=== PATIENT | female | born 1950 | race Caucasian/White ===

== ENCOUNTER → 2017-04-24 | Outpatient (CLI) | payer MEDICARE, OTHER ==
[~2017-04-24] MED LIST: ASPI-983 PO; HYDR15SO8 PO; IRON PO; NF-ESOM40C PO; ONDN4T PO; OSPE60TA2 PO; PARO30TA74 PO
--- NOTE | 2017-04-27 09:58 | Diagnostic Imaging Report ---
EXAMINATION: Bilateral screening mammogram with a Computer Aided Detection (CAD) system. INDICATION: Screening. PERSONAL HISTORY: No current complaints stated on the questionnaire. COMPARISON: 04/22/2016. FINDINGS: The breasts are composed of heterogeneously dense parenchyma which may decrease mammographic sensitivity. Occasional benign-appearing calcifications are seen. Allowing for technique and positional differences, no suspicious change is seen. IMPRESSION: Dense breasts with no definite change. ACR BI-RADS Category 2: Benign findings. Result letter will be mailed to the patient. Note: At least 10% of breast cancer is not imaged by mammography. Dictated by: Dictated on workstation # [id number]
== END ==
LOC: RAD 10:07
PROVIDERS: ATTEND Internal Medicine
DX: Z12.31 Encounter for screening mammogram for malignant neoplasm of breast (principal)
CPT/HCPCS: 77067

== ENCOUNTER 2018-01-21 14:17 | Emergency (ER) | payer MEDICARE, OTHER ==
[~2018-01-21] VITALS: Ht 152.4 cm; Wt 52.2 kg
[2018-01-21] MEDS ORDERED: NS IV 1000 ML 1,000 ML IV SCH (14:27)
[2018-01-21] MEDS ORDERED: PROMETHAZINE INJ 25 MG/ML (PHENERGAN) AMP IVP ONE (14:30)
[2018-01-21] MEDS ORDERED: ONDANSETRON 4 MG/2 ML (SDV) Z0FRAN IVP ONE (14:30)
[2018-01-21 14:42] LABS: BASOPHILS # (AUTO) 0.1 10^3/uL (0.0-0.1); BASOPHILS % (AUTO) 1 % (0-10); EOSINOPHILS # (AUTO) 0.1 10^3/uL (0.0-0.3); EOSINOPHILS % (AUTO) 1 % (0-10); HEMATOCRIT 45 % (35-52); HEMOGLOBIN 15.2 G/DL (11.5-16.0); LYMPHOCYTES # (AUTO) 1.5 X 10^3 (1.0-4.0); LYMPHOCYTES % (AUTO) 23 % (12-44); MEAN CORPUSCULAR HEMOGLOBIN 29 PG (25-34); MEAN CORPUSCULAR HGB CONC 34 G/DL (32-36); MEAN CORPUSCULAR VOLUME 87 FL (80-99); MEAN PLATELET VOLUME 10.8 FL (7.4-10.4); MONOCYTES # (AUTO) 0.6 X 10^3 (0.0-1.0); MONOCYTES % (AUTO) 9 % (0-12); NEUTROPHILS # (AUTO) 4.3 X 10^3 (1.8-7.8); NEUTROPHILS % (AUTO) 66 % (42-75); PLATELET COUNT 217 10^3/uL (130-400); RED BLOOD COUNT 5.17 10^6/uL (4.35-5.85); RED CELL DISTRIBUTION WIDTH 13.2 % (10.0-14.5); WHITE BLOOD COUNT 6.5 10^3/uL (4.3-11.0)
--- NOTE | 2018-01-21 14:56 | Diagnostic Imaging Report ---
PROCEDURE: CT head without contrast. TECHNIQUE: Multiple contiguous axial images were obtained through the brain without the use of intravenous contrast. INDICATION: Headache, nausea and vomiting. COMPARISON: None. FINDINGS: No acute intracranial hemorrhage, mass effect or edema is seen. Guerra-white junction is preserved. Ventricles appear normal. There is no focal abnormality. The paranasal sinuses and mastoids are clear as visualized. IMPRESSION: No acute intracranial abnormalities demonstrated. Dictated by: Dictated on workstation # [id number]
[2018-01-21 14:58] LABS: ALANINE AMINOTRANSFERASE 15 U/L (0-55); ALBUMIN 4.4 GM/DL (3.2-4.5); ALKALINE PHOSPHATASE 75 U/L (40-136); BILIRUBIN,TOTAL 0.9 MG/DL (0.1-1.0); BUN/CREATININE RATIO 10; CALCIUM 9.6 MG/DL (8.5-10.1); CARBON DIOXIDE 28 MMOL/L (21-32); CHLORIDE 103 MMOL/L (98-107); CREATININE SERUM 0.72 MG/DL (0.60-1.30); GFR ESTIMATED > 60; GLUCOSE 145 MG/DL (70-105); MAGNESIUM 1.9 MG/DL (1.8-2.4); POTASSIUM 3.2 MMOL/L (3.6-5.0); SODIUM 139 MMOL/L (135-145); TOTAL PROTEIN 6.8 GM/DL (6.4-8.2)
[2018-01-21] MEDS ORDERED: fentaNYL INJECTION 100 MCG/2 ML AMP IVP ONE (15:00)
--- NOTE | 2018-01-21 15:01 | ED General ---
General Chief Complaint: Neurological Problems Stated Complaint: N/V HEADACHE Nursing Triage Note: ASSISTED PT OUT OF CAR AND INTO ER VIA WC. COMPLAINS OF DIZZINESS, HEADACHE, N/V. AND WEAKNESS STARTING AT 1230 TODAY. Nursing Sepsis Screen: No Definite Risk Source of Information: Patient, Family Exam Limitations: No Limitations History of Present Illness Date Seen by Provider: Jan 21, 2018 Time Seen by Provider: 14:20 Initial Comments This 67 from woman presents to the emergency room with complaints of dizziness, headache, nausea, and vomiting starting around 12:30 today. She has a history of infrequent headaches but states this is worse than what she remembers. The headache is generalized. She denies any focal neurologic deficits such as change in vision, numbness, focal weakness, change in speech, etc. She did have some difficulty with balance while walking due to her to go (spinning sensation). However, she did not have any disequilibrium when I walked her during exam. Patient is noted to be hypertensive. Allergies and Home Medications Allergies Coded Allergies: levofloxacin (Verified Allergy, Intermediate, hives and swelling, 09/08/15 ) codeine (Unverified Allergy, Unknown, 07/03/15) doxycycline (Unverified Allergy, Unknown, 07/03/15) erythromycin base (Unverified Allergy, Unknown, 07/03/15) Home Medications Esomeprazole Magnesium 40 Mg Cap, 40 MG PO DAILY, (Reported) Hydrocodone/Acetaminophen 15 Ml Solution, 15 ML PO Q4H Prescribed by: JOSE HANNAH on 10/24/15 170 Ondansetron 4 Mg Tab.rapdis, 4 MG SL Q4H PRN for NAUSEA/VOMITING-1ST LINE Prescribed by: EDUAR COHN on 01/21/18 1821 Ondansetron HCl 4 Mg Tab, 4 MG PO Q4H Prescribed by: JOSE HANNAH on 10/24/15 170 Paroxetine HCl 30 Mg Tablet, 30 MG PO DAILY, (Reported) [Liquid Iron Packet] , 1 PACKET PO WEEKLY, (Reported) Patient Home Medication List Home Medication List Reviewed: Yes Constitutional: weakness (generalized) EENTM: no symptoms reported Respiratory: no symptoms reported Cardiovascular: no symptoms reported Gastrointestinal: see HPI Genitourinary: no symptoms reported : No Musculoskeletal: no symptoms reported Skin: no symptoms reported Psychiatric/Neurological: See HPI Hematologic/Lymphatic: No Symptoms Reported Immunological/Allergic: no symptoms reported Past Ljnlgpm-Oclybf-Gxmmjc Hx Patient Social History Alcohol Use: Denies Use Recreational Drug Use: No Smoking Status: Never a Smoker Recent Foreign Travel: No Contact w/Someone Who Travel: No Recent Infectious Disease Expo: No Surgeries History of Surgeries: Yes (GANGLION, BENIGN GROWTH R BREAST, TRIGGER FINGER R THUMB, TOE) Surgeries: Abdominal (fundoplication) Respiratory History of Respiratory Disorde: No Cardiovascular History of Cardiac Disorders: No ( ABNORMAL STRESS TEST, heart cath negative) Neurological History of Neurological Disord: No Reproductive System : No Hx Reproductive Disorders: No Sexually Transmitted Disease: No HIV/AIDS: No Genitourinary History of Genitourinary Disor: No Gastrointestinal History of Gastrointestinal Di: Yes Gastrointestinal Disorders: Gastroesophageal Reflux, Hiatal Hernia Musculoskeletal History of Musculoskeletal Dis: No Endocrine History of Endocrine Disorders: No HEENT History of HEENT Disorders: No Cancer History of Cancer: No Psychosocial History of Psychiatric Problem: No Integumentary History of Skin or Integumenta: No Blood Transfusions History of Blood Disorders: Yes (anemia) Family Medical History Family Medial History: Cardiovascular disease 19 MOTHER Completed stroke 19 FATHER FH: brain cancer G8 BROTHER Hypertension 19 FATHER 19 MOTHER G8 SISTER Physical Exam Vital Signs Vital Signs - First Documented 01/21/18 14:17 Temp 95.5 Pulse 93 Resp 18 B/P (MAP) 149/81 (103) Capillary Refill : Less Than 3 Seconds General Appearance: WD/WN, Moderate Distress HEENT: PERRL/EOMI, TMs Normal, Normal ENT Inspection, Pharynx Normal Neck: Normal Inspection Respiratory: Lungs Clear, Normal Breath Sounds, No Accessory Muscle Use, No Respiratory Distress Cardiovascular: Regular Rate, Rhythm, No Edema, No Murmur Extremity: Normal Inspection, No Pedal Edema Neurologic/Psychiatric: Alert, Oriented x3, No Motor/Sensory Deficits, Normal Mood/Affect, preschool assistant II-XII Norm as Tested, Other (finger to nose and heel to burt normal. Gait is cautious and slow but otherwise normal with no disequilibrium experienced) Skin: Normal Color, Warm/Dry Progress/Results/Core Measures Suspected Sepsis Recent Fever Within 48 Hours: No Infection Criteria Present: None New/Unexplained Altered Menta: No Sepsis Screen: No Definite Risk Sepsis Diagnosis: SIRS Temperature:95.5 Pulse: 93 Respiratory Rate: 18 Laboratory Tests 01/21/18 14:30: White Blood Count 6.5 Blood Pressure 149 /81 Mean: 103 Laboratory Tests 01/21/18 14:30: Creatinine 0.72, Platelet Count 217, Total Bilirubin 0.9 Results/Orders Lab Results Laboratory Tests Test 01/21/18 14:30 01/21/18 15:51 Range/Units White Blood Count 6.5 4.3-11.0 10^3/uL Red Blood Count 5.17 4.35-5.85 10^6/uL Hemoglobin 15.2 11.5-16.0 G/DL Hematocrit 45 35-52 % Mean Corpuscular Volume 87 80-99 FL Mean Corpuscular Hemoglobin 29 25-34 PG Mean Corpuscular Hemoglobin Concent 34 32-36 G/DL Red Cell Distribution Width 13.2 10.0-14.5 % Platelet Count 217 130-400 10^3/uL Mean Platelet Volume 10.8 H 7.4-10.4 FL Neutrophils (%) (Auto) 66 42-75 % Lymphocytes (%) (Auto) 23 12-44 % Monocytes (%) (Auto) 9 0-12 % Eosinophils (%) (Auto) 1 0-10 % Basophils (%) (Auto) 1 0-10 % Neutrophils # (Auto) 4.3 1.8-7.8 X 10^3 Lymphocytes # (Auto) 1.5 1.0-4.0 X 10^3 Monocytes # (Auto) 0.6 0.0-1.0 X 10^3 Eosinophils # (Auto) 0.1 0.0-0.3 10^3/uL Basophils # (Auto) 0.1 0.0-0.1 10^3/uL Sodium Level 139 135-145 MMOL/L Potassium Level 3.2 L 3.6-5.0 MMOL/L Chloride Level 103 98-107 MMOL/L Carbon Dioxide Level 28 21-32 MMOL/L Anion Gap 8 5-14 MMOL/L Blood Urea Nitrogen 7 7-18 MG/DL Creatinine 0.72 0.60-1.30 MG/DL Estimat Glomerular Filtration Rate > 60 BUN/Creatinine Ratio 10 Glucose Level 145 H 70-105 MG/DL Calcium Level 9.6 8.5-10.1 MG/DL Magnesium Level 1.9 1.8-2.4 MG/DL Total Bilirubin 0.9 0.1-1.0 MG/DL Aspartate Amino Transf (AST/SGOT) 22 5-34 U/L Alanine Aminotransferase (ALT/SGPT) 15 0-55 U/L Alkaline Phosphatase 75 40-136 U/L Total Protein 6.8 6.4-8.2 GM/DL Albumin 4.4 3.2-4.5 GM/DL TSH [place] Testing 0.68 0.35-4.94 UIU/ML Urine Color YELLOW Urine Clarity CLEAR Urine pH 8 5-9 Urine Specific [place] 1.015 L 1.016-1.022 Urine Protein 1+ H NEGATIVE Urine Glucose (UA) NEGATIVE NEGATIVE Urine Ketones 3+ H NEGATIVE Urine Nitrite NEGATIVE NEGATIVE Urine Bilirubin NEGATIVE NEGATIVE Urine Urobilinogen NORMAL NORMAL MG/DL Urine Leukocyte Esterase 2+ H NEGATIVE Urine RBC (Auto) 2+ H NEGATIVE Urine RBC 2-5 H /HPF Urine WBC 2-5 /HPF Urine Squamous Epithelial Cells 2-5 /HPF Urine Crystals NONE /LPF Urine Bacteria TRACE /HPF Urine Casts NONE /LPF Urine Mucus NEGATIVE /LPF Urine Culture Indicated NO My Orders Orders - EDUAR NICOLAS MD Ct Head Wo (01/21/18 14:27) Cbc With Automated Diff (01/21/18 14:27) Comprehensive Metabolic Panel (01/21/18 14:27) Magnesium (01/21/18 14:27) Thyroid Analyzer (01/21/18 14:27) Ua Culture If Indicated (01/21/18 14:27) Saline Lock/Iv-Start (01/21/18 14:27) Ns Iv 1000 Ml (Sodium Chloride 0.9%) (01/21/18 14:27) Monitor-Rhythm Ecg Trace Only (01/21/18 14:27) Ondansetron Injection (Zofran Injectio (01/21/18 14:30) Promethazine Injection (Phenergan Injec (01/21/18 14:30) Fentanyl Injection (Sublimaze Injection (01/21/18 15:00) Ketorolac Injection (Toradol Injection) (01/21/18 15:15) Potassium Chloride (Tablet) (Klor Con Ta (01/21/18 16:30) Medications Given in ED Current Medications Medications Dose Ordered Sig/Victor Manuel Route Start Time Stop Time Status Last Admin Dose Admin Fentanyl Citrate 50 mcg ONCE ONCE IVP 01/21/18 15:00 01/21/18 15:01 DC 01/21/18 14:58 50 MCG Ketorolac Tromethamine 15 mg ONCE ONCE IVP 01/21/18 15:15 01/21/18 15:16 DC 01/21/18 15:16 15 MG Ondansetron HCl 8 mg ONCE ONCE IVP 01/21/18 14:30 01/21/18 14:31 DC 01/21/18 14:38 8 MG Potassium Chloride 20 meq ONCE ONCE PO 01/21/18 16:30 01/21/18 16:31 DC 01/21/18 17:47 20 MEQ Promethazine HCl 12.5 mg ONCE ONCE IVP 01/21/18 14:30 01/21/18 14:31 DC 01/21/18 14:50 12.5 MG Vital Signs/I&O Vital Sign - Last 12Hours 01/21/18 14:17 Temp 95.5 Pulse 93 Resp 18 B/P (MAP) 149/81 (103) Capillary Refill : Less Than 3 Seconds Blood Pressure Mean: 103 Progress Note #1: Time: 15:36 Progress Note No focal neurologic deficits were found on exam. Patient was treated with Zofran, Phenergan, and IV fluids initially. This did help her dizziness but did not help her headache. Fentanyl 50 g was given which began to reduce her pain. CT of the head was obtained and was unremarkable. Toradol 15 mg was given for additional pain relief. Blood pressure improved significantly with these measures and systolic blood pressure is now 140s and 150s. Patient states her dizziness and headache have now resolved. Patient is comfortable enough to perform a Savoy-Hallpike maneuver. Quinn-Hallpike maneuver was negative bilaterally. Progress Note #2: Time: 16:20 Progress Note After allowing patient to rest for a while, I got her up to walk her again. She was able to independently ambulate but was a little unsteady on her feet. She does admit at this time to having some subtle disequilibrium. She also reported a vertigo sensation very briefly when lying back in bed. I contacted Dr. Liu, stroke neurologist at [facility]. She did not recommend pushing for any further imaging at this time but did recommend monitoring her for a while in the emergency room. If symptoms worsen, she suggests CT angiogram. Potassium will be replaced orally. Plan was communicated with patient and and they are agreeable. Patient is resting quietly at this time. Progress Note #3: Time: 18:15 Progress Note Patient is feeling much better and able to ambulate without disequilibrium. She was dismissed home in improved condition. Headache had also resolved and blood pressure was improved. Oral potassium replacement was provided. Diagnostic Imaging Diagonstic Imaging: CT Plain Films/CT/US/NM/MRI: head Comments CT head viewed by me and report reviewed. See report below: NAME: [facility] MONCADA [facility] REC#: [id number] PT STATUS: REG ER : 1950 PHYSICIAN: EDUAR NICOLAS MD ADMIT DATE: 01/21/18/ER Draft Date of Exam:01/21/18 CT HEAD WO PROCEDURE: CT head without contrast. TECHNIQUE: Multiple contiguous axial images were obtained through the brain without the use of intravenous contrast. INDICATION: Headache, nausea and vomiting. COMPARISON: None. FINDINGS: No acute intracranial hemorrhage, mass effect or edema is seen. Guerra-white junction is preserved. Ventricles appear normal. There is no focal abnormality. The paranasal sinuses and mastoids are clear as visualized. IMPRESSION: No acute intracranial abnormalities demonstrated. Dictated on workstation # [id number] Dict: 01/21/18 1453 Trans: 01/21/18 1455 [facility] [id number] Interpreted by: DONNA BUTLER DO Departure Impression Impression: Primary Impression: Dizziness Additional Impressions: Hypertensive urgency Hypokalemia Nausea and vomiting Qualified Codes: R11.2 - Nausea with vomiting, unspecified Disposition: 01 HOME, SELF-CARE Condition: Improved Departure-Patient Inst. Decision time for Depature: 18:15 Referrals: JOHN BALLARD DO (PCP/Family) Primary Care Physician Patient Instructions: Vertigo (a Type of Dizziness) (DC), Headache, Adult (DC) Add. Discharge Instructions: Drink plenty of clear liquids. 4 headache you may take ibuprofen up to 400 mg every 6 hours as needed and Tylenol (acetaminophen) up to 650 mg every 6 hours. Use Zofran (ondansetron) as prescribed for nausea or vomiting. Return to care if symptoms worsen again. Follow-up with Dr. Ballard as soon as possible. All discharge instructions reviewed with patient and/or family. Voiced understanding. Scripts Ondansetron (Zofran Odt) 4 Mg Tab.rapdis 4 MG SL Q4H Y for NAUSEA/VOMITING-1ST LINE, #10 TAB Prov: EDUAR NICOLAS MD 01/21/18 Copy Copies To 1: JOHN BALLARD JOSHUA T MD Jan 21, 2018 15:01
[2018-01-21] MEDS ORDERED: KETOROLAC 30 MG/ML VIAL IVP ONE (15:15)
[2018-01-21 15:18] LABS: TSH (THYROID ANALYZER) 0.68 UIU/ML (0.35-4.94)
[2018-01-21 15:59] LABS: BILIRUBIN,URINE NEGATIVE (NEGATIVE); CLARITY,URINE CLEAR; COLOR,URINE YELLOW; GLUCOSE, URINE (UA) NEGATIVE (NEGATIVE); KETONES,URINE 3+ (NEGATIVE); LEUKOCYTE ESTERASE ,URINE 2+ (NEGATIVE); NITRITE,URINE NEGATIVE (NEGATIVE); PH,URINE 8 (5-9); PROTEIN,URINE 1+ (NEGATIVE); UROBILINOGEN,URINE NORMAL (NORMAL)
[2018-01-21 16:11] LABS: BACTERIA,URINE TRACE /HPF
[2018-01-21] MEDS ORDERED: KCL 10 MEQ TAB (MICRO K) PO ONE (16:30)
[2018-01-21] MEDS ORDERED: ONDA4TAB8 SL (18:21)
[2018-01-21 18:28] VITALS: BP 132/81
== END 2018-01-21 18:29 | disposition home or self-care (01) ==
LOC: EDUNIT# 14:17 → ER 14:18
DX: R42 Dizziness and giddiness (principal); I16.0 Hypertensive urgency; E86.0 Dehydration; R11.2 Nausea with vomiting, unspecified; K21.9 Gastro-esophageal reflux disease without esophagitis; Z82.49 Family history of ischemic heart disease and other diseases of the circulatory system; Z80.8 Family history of malignant neoplasm of other organs or systems; Z88.1 Allergy status to other antibiotic agents; Z88.5 Allergy status to narcotic agent; Z87.19 Personal history of other diseases of the digestive system
CPT/HCPCS: 36415; 70450; 80053; 81000; 83735; 84443; 85025; 93041; 96361; 96374; 96375

== ENCOUNTER → 2018-05-04 | Outpatient (CLI) | payer MEDICARE, OTHER ==
[~2018-05-04] MED LIST changes: +ONDA4TAB8 SL
--- NOTE | 2018-05-04 12:15 | Diagnostic Imaging Report ---
INDICATION: Routine screening. COMPARISON: 04/24/2017 and 04/22/2016. TECHNIQUE: 2D and 3D bilateral screening mammography was performed with CAD. FINDINGS: Both breasts remain heterogeneously dense, limiting the sensitivity of mammography. No dominant mass or malignant appearing microcalcifications are seen. There are benign calcifications bilaterally. The axillae are unremarkable. IMPRESSION: No mammographic features suspicious for malignancy are identified. ACR BI-RADS Category 2: Benign findings. Result letter will be mailed to the patient. Note: At least 10% of breast cancer is not imaged by mammography. Dictated by: Dictated on workstation # [id number]
== END ==
LOC: RAD 07:45
PROVIDERS: ATTEND Internal Medicine
DX: Z12.31 Encounter for screening mammogram for malignant neoplasm of breast (principal)
CPT/HCPCS: 77067

== ENCOUNTER → 2019-05-20 | Outpatient (CLI) | payer MEDICARE, OTHER ==
--- NOTE | 2019-05-20 20:11 | Diagnostic Imaging Report ---
INDICATION: Screening The current study was also evaluated with a Computer Aided Detection (CAD) system. 3-D Tomographic imaging was also performed. COMPARISON: Comparison made with prior examinations from 05/04/2018, 04/24/2017, and 04/22/2016. FINDINGS: The fibroglandular tissue is heterogeneously dense bilaterally. There are a few benign-type calcifications. There is no dominant mass, spiculated lesion, or suspicious calcification identified. IMPRESSION: Benign. ACR BI-RADS Category 2: Benign findings. Result letter will be mailed to the patient. Note: At least 10% of breast cancer is not imaged by mammography. Dictated by: Dictated on workstation # [id number]
== END ==
LOC: RAD 10:08
PROVIDERS: ATTEND Internal Medicine
DX: Z12.31 Encounter for screening mammogram for malignant neoplasm of breast (principal)
CPT/HCPCS: 77067

== ENCOUNTER → 2020-05-21 | Outpatient (CLI) | payer MEDICARE, OTHER ==
--- NOTE | 2020-05-21 09:06 | Diagnostic Imaging Report ---
INDICATION: Routine screening. Comparison is made with prior mammogram from 05/20/2019 and 05/04/2018. 2-D and 3-D bilateral screening mammography was performed with CAD. Both breasts are heterogeneously dense, limiting the sensitivity of mammography. There are benign calcifications bilaterally. No dominant mass or malignant-appearing microcalcifications are identified. Axillae are unremarkable. IMPRESSION: BI-RADS Category 2 No mammographic features suspicious for malignancy are identified. ACR BI-RADS Category 2: Benign findings. Result letter will be mailed to the patient. Note: At least 10% of breast cancer is not imaged by mammography. Dictated by: Dictated on workstation # [id number]
== END ==
LOC: RAD 07:46
PROVIDERS: ATTEND Internal Medicine
DX: Z12.31 Encounter for screening mammogram for malignant neoplasm of breast (principal)
CPT/HCPCS: 77063; 77067

== ENCOUNTER → 2021-05-23 | Outpatient (CLI) | payer MEDICARE, OTHER ==
[~2021-05-23] MED LIST changes: +ASPI-1238 PO; -ASPI-983 PO
--- NOTE | 2021-05-23 10:15 | Diagnostic Imaging Report ---
INDICATION: Routine screening. COMPARISON is made with prior mammograms 05/21/2020 and 05/20/2019. 2-D and 3-D bilateral screening mammography was performed with CAD. Both breasts are heterogeneously dense, limiting the sensitivity of mammography. There is some questionable architectural distortion identifying the outer portion of the left breast. This appears to be superiorly located on the MLO view. Additional views are recommended. No other suspicious abnormality is seen. No malignant-appearing microcalcifications are seen. Axillae are unremarkable. IMPRESSION: BI-RADS Category 0 Question of architectural distortion of the upper outer left breast at mid depth. Further evaluation with additional views is recommended. ACR BI-RADS Category 0: Incomplete. (Needs additional imaging evaluation). Result letter will be mailed to the patient. Note: At least 10% of breast cancer is not imaged by mammography. Dictated by: Dictated on workstation # [id number]
== END ==
LOC: RAD 08:00
PROVIDERS: ATTEND Internal Medicine
DX: Z12.31 Encounter for screening mammogram for malignant neoplasm of breast (principal)
CPT/HCPCS: 77063; 77067

== ENCOUNTER → 2021-06-05 | Outpatient (CLI) | payer MEDICARE ==
--- NOTE | 2021-06-05 10:17 | Diagnostic Imaging Report ---
Indication: Architectural distortion on screening mammogram. Patient presents for additional views. Correlation is made with screening exam from 05/23/2021. Unilateral left 2-D and 3-D diagnostic mammography was performed. This includes spot compression CC and ML views as well as conventional 90 degrees lateral views. There is some persistent questionable artifactual distortion in the outer left breast approximately 4 to 5 cm from the nipple best seen on the CC view. This may be superiorly located on the MLO views. Further evaluation with ultrasound is recommended. IMPRESSION: BI-RADS 0 Continued questionable architectural distortion in the upper and outer aspect of the left breast 4 to 5 cm from the nipple. Further evaluation with ultrasound is recommended. ACR BI-RADS Category 0: Incomplete. (Needs additional imaging evaluation). Result letter will be mailed to the patient. Note: At least 10% of breast cancer is not imaged by mammography. Dictated by: Dictated on workstation # [id number]
--- NOTE | 2021-06-05 10:45 | Diagnostic Imaging Report ---
Indication: Architectural distortion left breast. Correlation is made with diagnostic mammogram earlier same day as well as screening mammogram from 05/23/2021. Sonographic interrogation of the upper and outer aspect of the left breast was performed. There is an irregular area of hypoechogenicity at the 1:00 location, 4 cm from the nipple, perhaps accounting for the area of architectural distortion noted mammographically. This area measures 1.2 x 1.1 x 1.2 cm. No internal vascularity is present. No other abnormalities are detected. IMPRESSION: BI-RADS Category 4 Irregular region of hypoechogenicity at the 1:00 location left breast, 4 cm from the nipple, likely accounting for the mammographic abnormality. Neoplasm cannot be entirely excluded and tissue sampling would be recommended. This would be amenable to ultrasound-guided core biopsy. ACR BI-RADS Category 4: Suspicious abnormality. Dictated by: Dictated on workstation # [id number]
== END ==
LOC: RAD 09:15
PROVIDERS: ATTEND Internal Medicine
DX: N63.20 Unspecified lump in the left breast, unspecified quadrant (principal)
CPT/HCPCS: 76642; 77065; G0279

== ENCOUNTER → 2021-06-10 | Outpatient (CLI) | payer MEDICARE ==
[~2021-06-10] VITALS: Ht 149.9 cm; Wt 51.8 kg
[~2021-06-10] MED LIST changes: +LIDOCAINE 1% INJ 20 ML 20 ML VIAL INJ ONE
--- NOTE | 2021-06-10 13:00 | Diagnostic Imaging Report ---
Indication: Left breast architectural distortion. Patient is status post ultrasound-guided biopsy. Unilateral left 2-D CC and ML mammography was performed after patient underwent ultrasound-guided core biopsy of the left breast. The images demonstrate a marker clip in the upper and outer aspect of the left breast near the area of architectural distortion. IMPRESSION: Marker clip deployment in the area of architectural distortion upper outer left breast. Dictated by: Dictated on workstation # [id number]
--- NOTE | 2021-06-10 13:29 | Diagnostic Imaging Report ---
Indication: Left breast architectural distortion. Patient presents for ultrasound guided core biopsy. Patient brought to the sonographic suite placed on the table in the supine position. Ultrasound imaging of the left breast was performed to evaluate appropriate entry site. Left breast was then prepped and draped in usual sterile fashion. Small amount of 1% lidocaine was utilized for local anesthesia. Total of 4 passes were made into the ill-defined region of hypoechogenicity at the 1:00 location left breast, 4 cm from the nipple utilizing the 14-gauge achieve needle. Core biopsies were obtained. A marker clip was then deployed. Hemostasis was obtained using manual compression. Patient tolerated procedure well and left the department in stable condition. IMPRESSION: Successful ultrasound guided core biopsy of the area of hypoechogenicity and architectural distortion 1:00 location left breast, 4 cm from the nipple. Pathology results are currently pending. Dictated by: Dictated on workstation # [id number]
== END ==
LOC: RAD 10:30
PROVIDERS: ATTEND Internal Medicine
DX: N63.21 Unspecified lump in the left breast, upper outer quadrant (principal)
CPT/HCPCS: 19083; 77065; G0279

== ENCOUNTER → 2021-07-03 | Outpatient (CLI) | payer MEDICARE ==
[~2021-07-03] VITALS: Ht 149.9 cm; Wt 53.5 kg
[~2021-07-03] MED LIST changes: +CYAN250014 PO; +FERROUS SULFATE; -LIDOCAINE 1% INJ 20 ML 20 ML VIAL INJ ONE; +OMEP20CA18 PO; +TAMO20TA2 PO; +VITAMIN D3
== END | disposition home or self-care (01) ==
LOC: PREOP 05:30
PROVIDERS: ATTEND Surgery
DX: Z01.818 Encounter for other preprocedural examination (principal)

== ENCOUNTER 2021-07-10 05:52 | Day surgery (SDC) | payer MEDICARE, OTHER ==
[~2021-07-10] VITALS: Ht 149 cm; Wt 53.5 kg
[2021-07-10] VITALS (10 sets, daily range): BP systolic 98–136; BP diastolic 50–79
[2021-07-10] MEDS ORDERED: ceFAZolin 2 GM IV Premixed 50 ML IV ONE (06:30)
[2021-07-10] MEDS ORDERED: LIDOCAINE 1% INJ 20 ML 20 ML VIAL INJ ONE (08:15)
--- NOTE | 2021-07-10 08:45 | Diagnostic Imaging Report ---
Indication: Left breast carcinoma. Patient presents for ultrasound-guided hookwire placement. Patient brought to the ultrasound suite and placed on table in the supine position. Ultrasound imaging left breast was performed to evaluate appropriate entry site. Left breast was then prepped and draped usual sterile fashion. Small amount 1% lidocaine was utilized for local anesthesia. Wire localization needle was advanced through the hypoechoic lesion at 1:00 location of the left breast, 4 cm from the nipple. Hookwire was then deployed and the needle was removed. Hookwire was affixed to the patient's skin. Patient tolerated the procedure well and was sent for postprocedural mammogram in satisfactory condition. IMPRESSION: Successful ultrasound-guided hookwire placement, localizing the lesion at 1:00 location of the left breast. Dictated by: Dictated on workstation # [id number]
--- NOTE | 2021-07-10 08:57 | Diagnostic Imaging Report ---
INDICATION: Left breast carcinoma. Patient status post ultrasound-guided hookwire placement prior to lumpectomy. Unilateral left 2-D CC and ML mammography was performed. There is a hookwire ling adjacent to the area of mass and a biopsy clip in the upper and outer aspect of the left breast at mid depth. IMPRESSION: Hookwire placement, as described. Dictated by: Dictated on workstation # [id number]
[2021-07-10] MEDS: LACTATED RINGERS 1,000 ML IV PRN ×2 (09:00→11:11)
--- NOTE | 2021-07-10 09:37 | Progress Note-Pre Operative ---
Pre-Operative Progress Note H&P Reviewed The H&P was reviewed, patient examined and no changes noted. Time Seen by Provider: 09:35 Date H&P Reviewed: Jul 10, 2021 Time H&P Reviewed: 09:35 Pre-Operative Diagnosis: Left breast CA, site marked RIK JOHNSON DO Jul 10, 2021 09:37
[2021-07-10] MEDS ORDERED: LIDOCAINE/EPI 1%-1:100,000 (XYLOCAINE) 20ML ONE (10:07)
[2021-07-10] MEDS ORDERED: METHYLENE BLUE 0.5% (PROVAYBLUE) 50 mg/10 ml vial IV ONE (10:07)
--- NOTE | 2021-07-10 10:11 | Diagnostic Imaging Report ---
INDICATION: Left breast carcinoma. Total of 1.04 mCi technetium 99m sulfur colloid was injected in 4 separate aliquots in a periareolar distribution of the left breast. Imaging was performed. There is migration of activity into the left axilla. 3 separate foci are present. These were marked on the patient's skin. These are consistent with sentinel nodes. Patient tolerated the procedure well and was sent to same day surgery in satisfactory condition. IMPRESSION: Successful left breast lymphoscintigraphy for identification of sentinel nodes. Dictated by: Dictated on workstation # [id number]
[2021-07-10] MEDS ORDERED: ONDANSETRON 4 MG/2 ML (SDV) Z0FRAN ONE (10:20)
[2021-07-10] MEDS ORDERED: fentaNYL INJ 100 MCG/2 ML AMP ONE (10:20)
[2021-07-10] MEDS ORDERED: LIDOCAINE PF 2% 5 ML (XYLOCAINE) VIAL ONE (10:20)
[2021-07-10] MEDS ORDERED: proPOfol 200 MG/20 ML (DIPRIVAN) VIAL IV ONE (10:20)
--- NOTE | 2021-07-10 11:29 | Progress Note-Post Operative ---
Post-Operative Progess Note Surgeon (s)/Desktop Manager (s) Surgeon RIK JOHNSON DO Desktop Manager: Lindsay Pre-Operative Diagnosis Left breast CA, site marked Post-Operative Diagnosis same pending path Procedure & Operative Findings Date of Procedure 07/10/21 Procedure Performed/Findings 1) Left partial mastectomy with needle localization 2) [place] lymph node biopsy 3) Injection of methylene blue Anesthesia Type LMA Estimated Blood Loss Estimated blood loss (mL): less than 10ml Specimens/Packing Specimens Removed left breast partial mastectomy with ellipse of skin sentinel lymph node x 3 blue & hot sentinel lymph node blue RIK JOHNSON DO Jul 10, 2021 11:29
[2021-07-10] MEDS ORDERED: SEVOFLURANE (ULTANE) 15 ML INHAL SOLN ONE ×2 (11:30→11:31)
[2021-07-10] MEDS ORDERED: ACHD5005 PO (11:30)
--- NOTE | 2021-07-10 11:32 | Discharge Inst-Surgical ---
Discharge Inst-Surgical Depart Medication/Instructions New, Converted or Re-Newed RX: Transmitted to Pharmacy Patient Instructions Follow up Appt: Make appointment for 1 week. [phone] Instructions: No lifting greater than 20 pounds. No strenuous activity. May shower in 24 hours, no tub bath or soaking. Use incentive spirometer at home as directed. No Smoking Skin/Wound Care: May remove bandages in am. You need to leave the Dermabond on incision it will fall off on it's own. Symptoms to Report: Appetite Changes, Extremity Discoloration, Numbness/Tingling, Swelling Increased, Bleeding Excessive, Eyesight Changes, Pain Increased, Urine Color Change, Constipation(Persistent), Fever over 101 degree F, Pain/Pressure in chest, Urinating Difficulty, Cough Up/Vomit Blood, Heart Beat Irreg/Pounding, Pain/Pressure in jaw, Cramps in feet or legs, Lightheadedness, Pain/Pressure in shoulder, Diarrhea(Persistent), Memory Changes Suddenly, Questions/Concerns, Weight gain consecutive days, Dizziness/Fainting, Nausea/Vomiting, Shortness of Breath, Weight gain over 2 pounds If questions or concerns contact your physician Or seek help at emergency department. Activity Activity as Tolerated: Yes Activity Instructions: Avoid Stress to Incision Driving Instructions: No Driving/Refer to Dr. Plascencia Discharge Diet: No Restrictions Diet After 24 Hours: Clear Liquid if Nauseous If Any Problems/Questions/Issu: Contact Your Physician, Go to Emergency Room Skin/Wound Care Infection Signs and Symptoms: Increased Redness, Foul Odor of Wound, Increased Drainage, Skin Itchy or Has a Rash, Increased Swelling, Temperature Above 101 F Wound Care Comment: wear a sports bra 24 hours a day for next week or so, can remove to shower Bathing Instructions: Shower Stitches/[place]/Dermabond Dis: Faustoond RIK JOHNSON DO Jul 10, 2021 11:32
[2021-07-10] MEDS ORDERED: morphine INJ 10 MG/ML 1ML (SYR OR VIAL) IVP ONE (12:00)
[2021-07-10] MEDS ORDERED: ONDANSETRON 4 MG/2 ML (SDV) Z0FRAN IVP PRN (12:00)
[2021-07-10] MEDS ORDERED: morphine INJ 10 MG/ML 1ML (SYR OR VIAL) ONE (12:02)
--- NOTE | 2021-07-10 12:43 | Diagnostic Imaging Report ---
Indication: Left breast carcinoma. Patient status post lumpectomy. Specimen radiograph from lumpectomy was submitted. The hookwire and marker clip located within the specimen. IMPRESSION: Specimen radiograph, as described. Dictated by: Dictated on workstation # [id number]
[2021-07-10] MEDS ORDERED: HYDROcodone/APAP 5 MG/325 MG (LORTAB) TAB ONE (13:03)
[2021-07-10] MEDS ORDERED: HYDROcodone/APAP 5 MG/325 MG (LORTAB) TAB PO ONE (13:15)
--- NOTE | 2021-07-10 13:35 | Anesthesia-General Post-Op ---
General Patient Condition Mental Status/LOC: Same as Preop Cardiovascular: Satisfactory Nausea/Vomiting: Absent Respiratory: Satisfactory Pain: Controlled Complications: Absent Post Op Complications Complications None Follow Up Care/Instructions Patient Instructions None needed. Anesthesia/Patient Condition Patient Condition Patient is doing well, no complaints, stable vital signs, no apparent adverse anesthesia problems. VIN HAZEL DO Jul 10, 2021 13:35
--- NOTE | 2021-07-10 18:54 | OPERATIVE REPORT ---
DATE OF SERVICE: PREOPERATIVE DIAGNOSIS: Left breast cancer, invasive ductal. POSTOPERATIVE DIAGNOSIS: Left breast cancer, invasive ductal, pending pathology. PROCEDURES PERFORMED: 1. Left partial mastectomy with needle localization. 2. [place] lymph node biopsy. 3. Injection of methylene blue dye. SURGEON: Tobin Johnson DO. CYLINDER WORKER: Kiran Montoya DO. ANESTHESIA: General endotracheal tube, I believe an LMA. SPECIMEN: Left breast partial mastectomy with the portion of skin as well as four lymph nodes. BLOOD LOSS: Less than 10 mL. FLUIDS: Per anesthesia. POSTOPERATIVE CONDITION: Stable. INDICATION FOR PROCEDURE: The patient is a 71-year-old female, who had a biopsy performed, which unfortunately came back as invasive ductal cancer. She wanted surgery. The mass, I believe, was less than a centimeter and that is why neoadjuvant chemotherapy was not done. She was first sent to radiology for a needle localization as well as injection of radioactive dye. She came down to the operating room and site had been marked. DESCRIPTION OF PROCEDURE: The patient was brought to the operating room table. She was intubated. Timeout was performed. Site was agreed on. I used the Pica8 counter to get numbers over where the radiology had marked possible lymph nodes, it was 54 and then when the tissue was opened, it was 199. First, I had infiltrated a 0.5 mL of methylene blue at the 12, 3, 6, and 9 o'clock position and then massaged this in for 5 minutes. The area was then sterilely prepped and draped in a normal fashion. The needle was coming out right around the 2 o'clock position. I could see the previous biopsy site. I elected to do an elliptical incision to remove this portion of the skin and continuing this with the needle and the previous biopsy site. I infiltrated this area with local, then made an incision with #15 blade and then along the elliptical incision, carried down through the skin into breast tissue; continued superiorly to go around the area of concern with Bovie electrocautery as well as distally, medially and laterally, able to take out portion of breast tissue and the portion of skin getting all of the suspected area of cancer with the needle. This was passed off table and sent to radiology and then pathology. Radiology confirmed the needle was completely contained as was the clip from the biopsy. At this point, I copiously irrigated with normal saline and then we switched gloves, switched set ups and started the sentinel node, dissected medially along where the skin had been marked from radiology for lymphoscintigraphy. I immediately encountered a hot blue lymph node. The [place] counter showed 1848. This was removed. I continued along, found another second one 1460 and found a third one, which was 5482. All of them were blue and then we found another blue lymph node that had no radioactivity in it. They were all passed off table and sent to pathology. The three lymph nodes were tracking up towards the axilla, but also medially and two of them under the pectoralis major muscle. I was able to remove these easily. Hemostasis was obtained using Bovie electrocautery. Copiously irrigated with sterile water. There was no bleeding at the end of the case and at this point, I then closed the incision in 2 layers, closing the deep tissue and then closing the skin with a 4-0 undyed Monocryl in a running subcuticular fashion. Area was cleaned and dried. Pressure dressings placed. The patient tolerated the procedure. She was transferred to recovery room in stable condition. Sponge, instrument and needle count correct at the end of the case. Dr. Montoya assisted in this case, helped me to make incisions, close incisions, identify anatomy, and hold anatomy out of the way. Job ID: [id number] DocumentID: [id number] Dictated Date: 07/10/2021 17:15:07 Manager [employer] Date: 07/10/2021 18:53:41 Dictated By: DO JOHNSON MORELAND
== END 2021-07-10 14:50 ==
LOC: CARD 05:52
PROVIDERS: ATTEND Surgery
DX: C50.412 Malignant neoplasm of upper-outer quadrant of left female breast (principal); Z79.899 Other long term (current) drug therapy; K21.9 Gastro-esophageal reflux disease without esophagitis; F32.9 Major depressive disorder, single episode, unspecified; F41.9 Anxiety disorder, unspecified; D63.0 Anemia in neoplastic disease; Z98.890 Other specified postprocedural states
CPT/HCPCS: 19285; 19301; 38525; 76098; 77065; 78195; 87081; A4648; A9541; G0279

== ENCOUNTER 2021-07-22 12:37 | Outpatient (CLI) | payer MEDICARE ==
[~2021-07-22] VITALS: Ht 149.9 cm; Wt 53.5 kg
[~2021-07-22 12:37] MED LIST changes: +ACHD5005 PO
[2021-07-22] MEDS ORDERED: CHOL-34 PO (13:28)
== END 2021-07-22 13:37 | disposition home or self-care (01) ==
LOC: PREOP 12:37
PROVIDERS: ATTEND Surgery
DX: Z01.818 Encounter for other preprocedural examination (principal)

== ENCOUNTER 2021-07-24 09:46 | Day surgery (SDC) | payer MEDICARE ==
[2021-07-24] VITALS (10 sets, daily range): BP systolic 110–130; BP diastolic 61–79
[~2021-07-24] VITALS: Ht 149.9 cm; Wt 53.5 kg
[~2021-07-24 09:46] MED LIST changes: +CHOL-34 PO
[2021-07-24] MEDS ORDERED: LIDOCAINE/EPI 1%-1:100,000 (XYLOCAINE) 10 ML ONE (09:53)
[2021-07-24] MEDS ORDERED: BUPIVACAINE 0.5% 30 ML (SENSORCAINE) VIAL ONE (09:53)
[2021-07-24] MEDS ORDERED: ceFAZolin 2 GM IV Premixed 50 ML IV ONE (10:00)
[2021-07-24] MEDS: LACTATED RINGERS 1,000 ML IV PRN ×2 (10:22→11:29)
[2021-07-24] MEDS ORDERED: LIDOCAINE PF 2% 5 ML (XYLOCAINE) VIAL ONE (10:42)
[2021-07-24] MEDS ORDERED: proPOfol 200 MG/20 ML (DIPRIVAN) VIAL IV ONE (10:42)
[2021-07-24] MEDS ORDERED: fentaNYL INJ 100 MCG/2 ML AMP ONE ×2 (10:43→11:45)
[2021-07-24] MEDS ORDERED: MIDAZOLAM 2 MG/2 ML (VERSED) VIAL ONE (10:43)
--- NOTE | 2021-07-24 10:46 | Progress Note-Pre Operative ---
Pre-Operative Progress Note H&P Reviewed The H&P was reviewed, patient examined and no changes noted. Time Seen by Provider: 10:44 Date H&P Reviewed: Jul 24, 2021 Time H&P Reviewed: 10:44 Pre-Operative Diagnosis: Residual breast CA, Left breast, side marked RIK JOHNSON DO Jul 24, 2021 10:46
[2021-07-24] MEDS ORDERED: SEVOFLURANE (ULTANE) 15 ML INHAL SOLN ONE (11:24)
--- NOTE | 2021-07-24 11:29 | Progress Note-Post Operative ---
Post-Operative Progess Note Surgeon (s)/Bottle Tester (s) Surgeon RIK JOHNSON DO Bottle Tester: ITA Wheeler Pre-Operative Diagnosis Residual breast CA, Left breast, side marked Post-Operative Diagnosis same pending path Procedure & Operative Findings Date of Procedure 07/24/21 Procedure Performed/Findings Wider Exc/Partial mastectomy Anesthesia Type LMA Estimated Blood Loss Estimated blood loss (mL): scant Specimens/Packing Specimens Removed portion 6 -12 o'clock, marked short superior, long inferior and 2 stitches 6 o'clock then went back and got xtra specimen superior, inferior and medial (6 oclock) RIK JOHNSON DO Jul 24, 2021 11:29
--- NOTE | 2021-07-24 11:30 | Discharge Inst-Surgical ---
Discharge Inst-Surgical Depart Medication/Instructions New, Converted or Re-Newed RX: Other (use home meds) Patient Instructions Follow up Appt: Make appointment for 1 week. [phone] Instructions: No lifting greater than 20 pounds. No strenuous activity. May shower in 24 hours, no tub bath or soaking. Use incentive spirometer at home as directed. No Smoking Skin/Wound Care: May remove bandages in am. You need to leave the Dermabond on incision it will fall off on it's own. Symptoms to Report: Appetite Changes, Extremity Discoloration, Numbness/Tingling, Swelling Increased, Bleeding Excessive, Eyesight Changes, Pain Increased, Urine Color Change, Constipation(Persistent), Fever over 101 degree F, Pain/Pressure in chest, Urinating Difficulty, Cough Up/Vomit Blood, Heart Beat Irreg/Pounding, Pain/Pressure in jaw, Cramps in feet or legs, Lightheadedness, Pain/Pressure in shoulder, Diarrhea(Persistent), Memory Changes Suddenly, Questions/Concerns, Weight gain consecutive days, Dizziness/Fainting, Nausea/Vomiting, Shortness of Breath, Weight gain over 2 pounds If questions or concerns contact your physician Or seek help at emergency department. Activity Activity Instructions: Avoid Stress to Incision Driving Instructions: No Driving/Refer to Dr. Plascencia Discharge Diet: No Restrictions Diet After 24 Hours: Clear Liquid if Nauseous If Any Problems/Questions/Issu: Contact Your Physician, Go to Emergency Room Skin/Wound Care Infection Signs and Symptoms: Increased Redness, Foul Odor of Wound, Increased Drainage, Skin Itchy or Has a Rash, Increased Swelling, Temperature Above 101 F Wound Care Comment: wear tight fitting bra for next 7 days, 24 hours per day except to shower Bathing Instructions: Shower Stitches/[place]/Dermabond Dis: Dermond RIK JOHNSON DO Jul 24, 2021 11:30
[2021-07-24] MEDS ORDERED: ONDANSETRON 4 MG/2 ML (SDV) Z0FRAN IVP PRN (12:00)
[2021-07-24] MEDS ORDERED: fentaNYL INJ 100 MCG/2 ML AMP IVP ONE (12:00)
--- NOTE | 2021-07-24 12:07 | Anesthesia-General Post-Op ---
General Patient Condition Mental Status/LOC: Same as Preop Cardiovascular: Satisfactory Nausea/Vomiting: Absent Respiratory: Satisfactory Pain: Controlled Complications: Absent Post Op Complications Complications None Follow Up Care/Instructions Patient Instructions None needed. Anesthesia/Patient Condition Patient Condition Patient is doing well, no complaints, stable vital signs, no apparent adverse anesthesia problems. No complications reported per nursing. FREDI GOMEZ CRNA Jul 24, 2021 12:07
[2021-07-24] MEDS ORDERED: HYDROcodone/APAP 5 MG/325 MG (LORTAB) TAB ONE (12:49)
[2021-07-24] MEDS ORDERED: HYDROcodone/APAP 5 MG/325 MG (LORTAB) TAB PO ONE (13:00)
--- NOTE | 2021-07-24 22:08 | OPERATIVE REPORT ---
DATE OF SERVICE: PREOPERATIVE DIAGNOSIS: Left breast ductal carcinoma. POSTOPERATIVE DIAGNOSIS: Left breast ductal carcinoma, pending pathology. PROCEDURE: Wider excision, basically partial mastectomy of left breast. SURGEON: Tobin Johnson DO FOOD PRODUCTS TESTER: Song Carrillo MS3. ANESTHESIA: LMA. SPECIMEN: Breast tissue. BLOOD LOSS: Less than 20 mL. FLUIDS: Per anesthesia. POSTOPERATIVE CONDITION: Stable. INDICATION FOR PROCEDURE: The patient is a 71-year-old female who already had a lumpectomy with needle localization for a breast cancer. Unfortunately found to have the specimen had 3 positive margins basically from 6 o'clock to 12 o'clock inferior to the superior and along the medial aspect, but not the anterior or closest to the posterior or the base. She needed wider excision to try and get all of the cancer out. FINDINGS: The patient had this area excised and sent to pathology. PROCEDURE NOTE: After informed consent was obtained, the patient was brought to the operating room, placed on the table in supine position. She was sterilely prepped and draped in normal fashion. Local lidocaine was used to infiltrate the skin around the previous incision. I then made an incision with #15 blade, carried down through the skin directly through the old incision. There was a small seroma. This was suctioned out. I then copiously irrigated and then grasped the tissue from about the 6 o'clock to the 12 o'clock position with Allises and then starting back about senior living in the cavity, went around this area from 12 o'clock down to 6 o'clock, getting the tissue with Bovie electrocautery. Once this was done, then marked it with a short stitch superior, long stitch inferior and two stitches at the most medial aspect. got 3 more specimens, one from the superior aspect, right at 12 o'clock, one from right about 9 o'clock and one from right around 6 o'clock to try and make sure we got all of the tissue out. At this point, copiously irrigated with sterile water. Hemostasis obtained using Bovie electrocautery, did not appear to be any obvious masses and so elected to close the incision, closing with 4-0 Monocryl running subcuticular stitch. Area was cleaned and dried. Dermabond was used and then pressure and fluff dressing placed. This is basically a partial mastectomy, but wider local excision. She was transferred to recovery room in stable condition. Job ID: [id number] DocumentID: [id number] Dictated Date: 07/24/2021 15:58:56 Job Captain Date: 07/24/2021 22:07:56 Dictated By: TOBIN JOHNSON DO
== END 2021-07-24 13:40 | disposition home or self-care (01) ==
LOC: SDC 09:46
PROVIDERS: ATTEND Surgery
DX: C50.412 Malignant neoplasm of upper-outer quadrant of left female breast (principal); L76.34 Postprocedural seroma of skin and subcutaneous tissue following other procedure; K21.9 Gastro-esophageal reflux disease without esophagitis; D63.0 Anemia in neoplastic disease; Z98.890 Other specified postprocedural states; Z79.899 Other long term (current) drug therapy; Z79.891 Long term (current) use of opiate analgesic
CPT/HCPCS: 87081

== ENCOUNTER 2021-08-21 13:10 | Outpatient (RCR) | payer MEDICARE, OTHER | END 2021-09-12 | disposition home or self-care (01) | LOC: ONC 13:10 | PROVIDERS: ATTEND Internal Medicine Hematology & Oncology | DX: C50.412 Malignant neoplasm of upper-outer quadrant of left female breast (principal); Z86.2 Personal history of diseases of the blood and blood-forming organs and certain disorders involving the immune mechanism; Z78.0 Asymptomatic menopausal state | CPT/HCPCS: 99213; 99214 ==

== ENCOUNTER 2021-10-24 13:23 | Outpatient (RCR) | payer MEDICARE, OTHER ==
[2021-09-25 13:25] LABS: BASOPHILS % (AUTO) 1 % (0-10); EOSINOPHILS # (AUTO) 0.1 10^3/uL (0.0-0.3); EOSINOPHILS % (AUTO) 2 % (0-10); HEMATOCRIT 47 % (35-52); HEMOGLOBIN 15.4 g/dL (11.5-16.0); LYMPHOCYTES # (AUTO) 1.7 10^3/uL (1.0-4.0); LYMPHOCYTES % (AUTO) 24 % (12-44); MEAN CORPUSCULAR HEMOGLOBIN 31 pg (25-34); MEAN CORPUSCULAR HGB CONC 33 g/dL (32-36); MEAN CORPUSCULAR VOLUME 93 fL (80-99); MEAN PLATELET VOLUME 10.5 fL (9.0-12.2); MONOCYTES # (AUTO) 0.6 10^3/uL (0.0-1.0); MONOCYTES % (AUTO) 9 % (0-12); NEUTROPHILS # (AUTO) 4.6 10^3/uL (1.8-7.8); NEUTROPHILS % (AUTO) 65 % (42-75); PLATELET COUNT 234 10^3/uL (130-400); WHITE BLOOD COUNT 7.1 10^3/uL (4.3-11.0)
[2021-09-25 13:42] LABS: BILIRUBIN,TOTAL 0.6 MG/DL (0.1-1.0); CALCIUM 9.1 MG/DL (8.5-10.1); CREATININE SERUM 0.76 MG/DL (0.60-1.30); POTASSIUM 3.8 MMOL/L (3.6-5.0); TOTAL PROTEIN 6.4 GM/DL (6.4-8.2)
== END 2021-10-25 | disposition home or self-care (01) ==
LOC: ONC 13:23
PROVIDERS: ATTEND Internal Medicine Hematology & Oncology
DX: Z51.0 Encounter for antineoplastic radiation therapy (principal); C50.412 Malignant neoplasm of upper-outer quadrant of left female breast; Z86.2 Personal history of diseases of the blood and blood-forming organs and certain disorders involving the immune mechanism; Z78.0 Asymptomatic menopausal state
CPT/HCPCS: 80053; 85025; G0463; 77280; 77290; 77295; 77300; 77334; 77336; 77417; 99204; 99213; 99214

== ENCOUNTER 2021-11-08 09:00 | Outpatient (RCR) | payer MEDICARE, OTHER | END 2021-11-21 11:10 | disposition home or self-care (01) | LOC: ONC 09:00 | PROVIDERS: ATTEND Internal Medicine Hematology & Oncology | DX: Z51.0 Encounter for antineoplastic radiation therapy (principal); C50.412 Malignant neoplasm of upper-outer quadrant of left female breast; Z86.2 Personal history of diseases of the blood and blood-forming organs and certain disorders involving the immune mechanism; Z78.0 Asymptomatic menopausal state | CPT/HCPCS: 77307; 77334; 77336; 77417 ==

== ENCOUNTER 2021-11-26 10:49 | Outpatient (RCR) | payer MEDICARE, OTHER ==
[2021-11-26 11:08] LABS: BASOPHILS % (AUTO) 0 % (0-10); EOSINOPHILS # (AUTO) 0.1 10^3/uL (0.0-0.3); EOSINOPHILS % (AUTO) 2 % (0-10); HEMATOCRIT 47 % (35-52); HEMOGLOBIN 15.2 g/dL (11.5-16.0); LYMPHOCYTES # (AUTO) 0.9 10^3/uL (1.0-4.0); LYMPHOCYTES % (AUTO) 17 % (12-44); MEAN CORPUSCULAR HEMOGLOBIN 30 pg (25-34); MEAN CORPUSCULAR HGB CONC 33 g/dL (32-36); MEAN CORPUSCULAR VOLUME 93 fL (80-99); MEAN PLATELET VOLUME 10.4 fL (9.0-12.2); MONOCYTES # (AUTO) 0.5 10^3/uL (0.0-1.0); MONOCYTES % (AUTO) 10 % (0-12); NEUTROPHILS % (AUTO) 71 % (42-75); PLATELET COUNT 197 10^3/uL (130-400); WHITE BLOOD COUNT 5.6 10^3/uL (4.3-11.0)
[2021-11-26 11:24] LABS: ALBUMIN 3.7 GM/DL (3.2-4.5); BILIRUBIN,TOTAL 0.7 MG/DL (0.1-1.0); CALCIUM 8.7 MG/DL (8.5-10.1); CREATININE SERUM 0.71 MG/DL (0.60-1.30); POTASSIUM 3.9 MMOL/L (3.6-5.0); TOTAL PROTEIN 6.2 GM/DL (6.4-8.2)
== END 2021-12-23 | disposition home or self-care (01) ==
LOC: ONC 10:49
PROVIDERS: ATTEND Internal Medicine Hematology & Oncology
DX: C50.412 Malignant neoplasm of upper-outer quadrant of left female breast (principal); Z90.12 Acquired absence of left breast and nipple; Z92.3 Personal history of irradiation; Z86.2 Personal history of diseases of the blood and blood-forming organs and certain disorders involving the immune mechanism; Z78.0 Asymptomatic menopausal state
CPT/HCPCS: 80053; 85025; G0463

== ENCOUNTER → 2021-12-03 | Outpatient (CLI) | payer MEDICARE, OTHER ==
--- NOTE | 2021-12-03 16:27 | Diagnostic Imaging Report ---
INDICATION: M[age]-year-old postmenopausal female COMPARISON: 08/28/2016 FINDINGS: AP Spine L1-L4: [BMD (g/cm2): 0.990] [T-Score: -1.7] [Z-Score: 0.3] [BMD Previous: 1.071] [BMD % Change: -7.6] LT Hip Neck: [BMD (g/cm2): 0.638] [T-Score: -2.9] [Z-Score: -0.9] LT Hip Total: [BMD (g/cm2):0.750] [T-Score:-2.0] [Z-Score: -0.3] [BMD Previous: 0.785] [BMD % Change: -4.5] RT Hip Neck: [BMD (g/cm2):0.653] [T-Score:-2.8] [Z-Score:-0.8] RT Hip Total: [BMD (g/cm2):0.728] [T-score:-2.2] [Z-Score:-0.4] [BMD Previous:0.785] [BMD % Change:-7.3] *Indicates significant change from prior examination based on 95% confidence level. World Health Organization criteria for BMD interpretation classify patients as Normal (T-score at or above -1.0), Osteopenic (T-score between -1.0 and -2.5) or Osteoporotic (T-score at or below -2.5). LIMITATIONS AND MODIFICATION: None. FRACTURE RISK (FRAX SCORE): The ten year probability of (%): Major Osteoporotic Fracture: [17.6] Hip Fracture: [5.8] IMPRESSION: 1. Osteopenia (Low bone mass). 2. No significant change in bone mineral density since prior examination. 3. See below National Osteoporosis Foundation guidelines on when to potentially initiate pharmacologic therapy. Based on the National Osteoporosis Foundation Guidelines, pharmacologic treatment should be initiated in any of the following, unless clinical conditions suggest otherwise: * Any patient with prior fragility fracture of the hip or vertebrae. A spine fracture indicates 5X risk for subsequent spine fracture and 2X risk for subsequent hip fracture. * Osteoporosis (T-score <-2.5). * Postmenopausal women and men age 50 and older with low bone mass/osteopenia (T-score between -1.0 and -2.5) by DXA and 10-year major osteoporotic fracture greater than 20% or a 10-year probability of hip fracture greater than 3%. These fracture risks are supplied above in the FRAX score, if applicable. * Clinician judgement and/or patient preferences may indicate treatment for people with 10-year fracture probabilities above or below these levels. Dictated by: Dictated on workstation # [id number]
== END ==
LOC: RAD 13:30
PROVIDERS: ATTEND Internal Medicine Hematology & Oncology
DX: Z12.31 Encounter for screening mammogram for malignant neoplasm of breast (principal); M85.89 Other specified disorders of bone density and structure, multiple sites; Z78.0 Asymptomatic menopausal state
CPT/HCPCS: 77080

== ENCOUNTER 2021-12-26 10:58 | Outpatient (RCR) | payer MEDICARE, OTHER | END 2022-01-23 | LOC: ONC 10:58 | PROVIDERS: ATTEND Internal Medicine Hematology & Oncology | DX: C50.412 Malignant neoplasm of upper-outer quadrant of left female breast (principal); Z90.12 Acquired absence of left breast and nipple; Z92.3 Personal history of irradiation; Z86.2 Personal history of diseases of the blood and blood-forming organs and certain disorders involving the immune mechanism; Z78.0 Asymptomatic menopausal state | CPT/HCPCS: 99213 ==

== ENCOUNTER → 2022-05-27 | Outpatient (CLI) | payer MEDICARE, OTHER ==
--- NOTE | 2022-05-27 18:13 | Diagnostic Imaging Report ---
Indication: Routine screening. Comparison is made with prior mammograms 05/23/2021 and 05/21/2020. 2-D and 3-D bilateral screening mammography was performed with CAD. Both breasts are heterogeneously dense, limiting the sensitivity of mammography. Post-therapeutic changes in the left breast are noted. There is no mass. No malignant-appearing microcalcifications are seen. There are benign calcifications present bilaterally. Axillae are unremarkable. IMPRESSION: BI-RADS Category 2 No mammographic features suspicious for malignancy are identified. ACR BI-RADS Category 2: Benign findings. Result letter will be mailed to the patient. Note: At least 10% of breast cancer is not imaged by mammography. Dictated by: Dictated on workstation # [id number]
== END ==
LOC: RAD 10:30
PROVIDERS: ATTEND Internal Medicine Hematology & Oncology
DX: Z12.31 Encounter for screening mammogram for malignant neoplasm of breast (principal); M85.80 Other specified disorders of bone density and structure, unspecified site
CPT/HCPCS: 77063; 77067

== ENCOUNTER 2022-05-30 09:57 | Outpatient (RCR) | payer MEDICARE, OTHER ==
[2022-05-30 10:10] LABS: BASOPHILS % (AUTO) 0 % (0-10); EOSINOPHILS # (AUTO) 0.1 10^3/uL (0.0-0.3); EOSINOPHILS % (AUTO) 2 % (0-10); HEMATOCRIT 45 % (35-52); HEMOGLOBIN 14.8 g/dL (11.5-16.0); LYMPHOCYTES % (AUTO) 19 % (12-44); MEAN CORPUSCULAR HEMOGLOBIN 31 pg (25-34); MEAN CORPUSCULAR HGB CONC 33 g/dL (32-36); MEAN CORPUSCULAR VOLUME 92 fL (80-99); MEAN PLATELET VOLUME 10.7 fL (9.0-12.2); MONOCYTES # (AUTO) 0.5 10^3/uL (0.0-1.0); MONOCYTES % (AUTO) 10 % (0-12); NEUTROPHILS # (AUTO) 3.6 10^3/uL (1.8-7.8); NEUTROPHILS % (AUTO) 68 % (42-75); PLATELET COUNT 179 10^3/uL (130-400); WHITE BLOOD COUNT 5.3 10^3/uL (4.3-11.0)
[2022-05-30 10:35] LABS: ALBUMIN 3.7 GM/DL (3.2-4.5); BILIRUBIN,TOTAL 0.7 MG/DL (0.1-1.0); CALCIUM 8.8 MG/DL (8.5-10.1); CREATININE SERUM 0.74 MG/DL (0.60-1.30); POTASSIUM 4.4 MMOL/L (3.6-5.0); TOTAL PROTEIN 5.8 GM/DL (6.4-8.2)
== END 2022-06-25 | disposition home or self-care (01) ==
LOC: ONC 09:57
PROVIDERS: ATTEND Internal Medicine Hematology & Oncology
DX: C50.412 Malignant neoplasm of upper-outer quadrant of left female breast (principal); Z90.12 Acquired absence of left breast and nipple; Z92.3 Personal history of irradiation; Z86.2 Personal history of diseases of the blood and blood-forming organs and certain disorders involving the immune mechanism; Z78.0 Asymptomatic menopausal state
CPT/HCPCS: 80053; 85025; G0463; 36415; 99213

== ENCOUNTER → 2022-07-02 | Outpatient (CLI) | payer MEDICARE, OTHER ==
[~2022-07-02] VITALS: Ht 149.9 cm; Wt 55.3 kg
[~2022-07-02] MED LIST changes: +MULT-593 PO
== END | disposition home or self-care (01) ==
LOC: PREOP 05:36
PROVIDERS: ATTEND Surgery
DX: Z01.818 Encounter for other preprocedural examination (principal)

== ENCOUNTER 2022-07-10 08:30 | Day surgery (SDC) | payer MEDICARE, OTHER ==
[~2022-07-10] VITALS: Ht 150 cm; Wt 55.3 kg
[2022-07-10] MEDS ORDERED: LACTATED RINGERS 1,000 ML IV STA (08:31)
[2022-07-10] MEDS ORDERED: LACTATED RINGERS 1,000 ML IV ONE (08:33)
[2022-07-10] MEDS ORDERED: HURRICAINE EXT TUBE (BENZOCAINE) XX PRN (08:45)
[2022-07-10 08:50] VITALS: BP 137/72
--- NOTE | 2022-07-10 08:52 | Progress Note-Pre Operative ---
Pre-Operative Progress Note Date of Available H&P: Jun 10, 2022 Date H&P Reviewed: Jul 10, 2022 Time H&P Reviewed: 08:45 History & Physical: H&P Reviewed, Patient Examed, No changes noted Pre-Operative Diagnosis: RIK LOWE DO Jul 10, 2022 08:52
[2022-07-10] MEDS ORDERED: proPOfol 200 MG/20 ML (DIPRIVAN) VIAL IV ONE (10:14)
--- NOTE | 2022-07-10 10:31 | Progress Note-Post Operative ---
Post-Operative Progess Note Surgeon (s)/Cnc Specialist (s) Surgeon RIK JOHNSON DO Cnc Specialist: none Pre-Operative Diagnosis GERD Post-Operative Diagnosis Gastritis - moderate Hiatal hernia Ahuja's esophagus Procedure & Operative Findings Date of Procedure 07/10/22 Procedure Performed/Findings EGD with Hemorrhoids PROCEDURE NOTE: After informed consent was obtained, the patient was brought to the endoscopy suite, placed in bed in left lateral decubitus position. She was administered IV sedation by the AUTOMATIC LOG CUT OFF SAWYER who then monitored vitals the entire time, heart rate, blood pressure and pulse ox and the scope was inserted down the mouth through the esophagus into the stomach. On the way down, noted some moderate esophagitis, took a picture and pushed into the stomach. In the stomach I noted some moderate gastritis as well; pushed past the antrum and into the duodenum. Duodenum looked good. Pulled back and did a biopsy of the antrum, then retroflexed the scope, saw a small hiatal hernia and took a picture of this. Next, pulled the scope into the GE junction and noted there was a lot more stomach above the diaphragm then the hiatal hernia would indicate. Took another picture of this and then did a biopsy of the GE junction. Pushed the scope back into the stomach, suctioned all the air out of the stomach. At this point pulled the scope up the esophagus and out the mouth. The patient tolerated the procedure, and she recovered in endoscopy suite. Anesthesia Type IV sedation by AUTOMATIC LOG CUT OFF SAWYER Estimated Blood Loss Estimated blood loss (mL): scant Specimens/Packing Specimens Removed antral bx body of stomach bx GE jxn bx RIK JOHNSON DO Jul 10, 2022 10:31
[2022-07-10] MEDS ORDERED: ESOM40CA52 PO (10:32)
[2022-07-10] MEDS ORDERED: SUCR1TAB36 PO (10:32)
--- NOTE | 2022-07-10 10:32 | Endoscopy Discharge Instruct ---
Endo Procedure/Findings Findings 1.: Gastritis 2.: Hiatal Hernia 3.: Ahuja's Esophagus Discharge Instructions - Activity: You might feel a little sleepy until tomorrow. This is due to the medicine you received to relax you. Until tomorrow, you should: NOT drive a car, operate machinery or power tools. NOT drink any alcoholic beverages. NOT make any important decisions or sign importortant papers. Do not return to work until tomorrow, unless otherwise instructed. Resume previous activities tomorrow. Diet: Start by taking liquids. If you tolerate liquids, advance to solid food. 1.: EGD in 1 year Notify Physician - If you experience excessive bleeding, unusual abdominal pain, fever, or chest pain, contact your doctor immediately. RIK JOHNSON DO Jul 10, 2022 10:32
[2022-07-10 10:33] VITALS: BP 128/60
[2022-07-10 10:38] VITALS: BP 116/56
[2022-07-10 10:40] VITALS: BP 121/58
[2022-07-10 11:10] VITALS: BP 121/58
--- NOTE | 2022-07-10 11:52 | Anesthesia-General Post-Op ---
MAC Patient Condition Mental Status/LOC: Same as Preop Cardiovascular: Satisfactory Nausea/Vomiting: Absent Respiratory: Satisfactory Pain: Controlled Complications: Absent Post Op Complications Complications None Follow Up Care/Instructions Patient Instructions None needed. Anesthesiology Discharge Order Discharge Order Patient is doing well, no complaints, stable vital signs, no apparent adverse anesthesia problems. No complications reported per nursing. FREDI GOMEZ CRNA Jul 10, 2022 11:52
== END 2022-07-10 11:20 | disposition home or self-care (01) ==
LOC: ENDO 08:30
PROVIDERS: ATTEND Surgery
DX: K21.00 Gastro-esophageal reflux disease with esophagitis, without bleeding (principal); K29.50 Unspecified chronic gastritis without bleeding; Z28.311 Partially vaccinated for COVID-19; K44.9 Diaphragmatic hernia without obstruction or gangrene; K22.70 Barrett's esophagus without dysplasia

== ENCOUNTER 2022-12-08 10:45 | Outpatient (RCR) | payer MEDICARE, OTHER ==
[~2022-12-08 10:45] MED LIST changes: +ESOM40CA52 PO; -PARO30TA74 PO; +PARO30TA96 PO; +SUCR1TAB36 PO
[2022-12-08 11:05] LABS: BASOPHILS % (AUTO) 1 % (0-10); EOSINOPHILS # (AUTO) 0.2 10^3/uL (0.0-0.3); EOSINOPHILS % (AUTO) 4 % (0-10); HEMATOCRIT 42 % (35-52); HEMOGLOBIN 13.9 g/dL (11.5-16.0); LYMPHOCYTES # (AUTO) 1.1 10^3/uL (1.0-4.0); LYMPHOCYTES % (AUTO) 21 % (12-44); MEAN CORPUSCULAR HEMOGLOBIN 31 pg (25-34); MEAN CORPUSCULAR HGB CONC 33 g/dL (32-36); MEAN CORPUSCULAR VOLUME 93 fL (80-99); MEAN PLATELET VOLUME 10.3 fL (9.0-12.2); MONOCYTES # (AUTO) 0.6 10^3/uL (0.0-1.0); MONOCYTES % (AUTO) 11 % (0-12); NEUTROPHILS # (AUTO) 3.3 10^3/uL (1.8-7.8); NEUTROPHILS % (AUTO) 64 % (42-75); PLATELET COUNT 183 10^3/uL (130-400); WHITE BLOOD COUNT 5.2 10^3/uL (4.3-11.0)
[2022-12-08 11:25] LABS: ALBUMIN 3.5 GM/DL (3.2-4.5); BILIRUBIN,TOTAL 0.4 MG/DL (0.1-1.0); CALCIUM 8.6 MG/DL (8.5-10.1); CREATININE SERUM 0.7 MG/DL (0.60-1.30); POTASSIUM 3.8 MMOL/L (3.6-5.0); TOTAL PROTEIN 5.8 GM/DL (6.4-8.2)
== END 2022-12-23 | disposition home or self-care (01) ==
LOC: ONC 10:45
PROVIDERS: ATTEND Internal Medicine Hematology & Oncology
DX: C50.412 Malignant neoplasm of upper-outer quadrant of left female breast (principal); K21.00 Gastro-esophageal reflux disease with esophagitis, without bleeding; K44.9 Diaphragmatic hernia without obstruction or gangrene; Z92.3 Personal history of irradiation
CPT/HCPCS: 36415; 80053; 85025

== ENCOUNTER → 2023-05-29 | Outpatient (CLI) | payer MEDICARE, OTHER ==
--- NOTE | 2023-05-29 12:10 | Diagnostic Imaging Report ---
INDICATION: Routine screening. Comparison is made with prior mammogram from 05/27/2022 and 05/23/2021. 2-D and 3-D bilateral screening mammography was performed with CAD. Both breasts are heterogeneously dense, limiting the sensitivity of mammography. Postoperative changes in the upper outer left breast appears stable. No new mass or malignant appearing microcalcifications are seen. Axillae are unremarkable. IMPRESSION: No mammographic features suspicious for malignancy are identified. ACR BI-RADS Category 2: Benign findings. Result letter will be mailed to the patient. Note: At least 10% of breast cancer is not imaged by mammography. BI-RADS Category 2 Dictated by: Dictated on workstation # [id number]
== END ==
LOC: RAD 10:18
PROVIDERS: ATTEND Internal Medicine Hematology & Oncology
DX: Z12.31 Encounter for screening mammogram for malignant neoplasm of breast (principal); C50.912 Malignant neoplasm of unspecified site of left female breast
CPT/HCPCS: 77063; 77067

== ENCOUNTER 2023-06-01 12:53 | Outpatient (RCR) | payer MEDICARE, OTHER ==
[2023-06-01 13:10] LABS: BASOPHILS % (AUTO) 1 % (0-10); EOSINOPHILS # (AUTO) 0.1 10^3/uL (0.0-0.3); EOSINOPHILS % (AUTO) 2 % (0-10); HEMATOCRIT 45 % (35-52); HEMOGLOBIN 14.7 g/dL (11.5-16.0); LYMPHOCYTES # (AUTO) 1.3 10^3/uL (1.0-4.0); LYMPHOCYTES % (AUTO) 19 % (12-44); MEAN CORPUSCULAR HEMOGLOBIN 31 pg (25-34); MEAN CORPUSCULAR HGB CONC 33 g/dL (32-36); MEAN CORPUSCULAR VOLUME 93 fL (80-99); MEAN PLATELET VOLUME 10.8 fL (9.0-12.2); MONOCYTES # (AUTO) 0.5 10^3/uL (0.0-1.0); MONOCYTES % (AUTO) 7 % (0-12); NEUTROPHILS # (AUTO) 4.7 10^3/uL (1.8-7.8); NEUTROPHILS % (AUTO) 71 % (42-75); PLATELET COUNT 194 10^3/uL (130-400); WHITE BLOOD COUNT 6.7 10^3/uL (4.3-11.0)
[2023-06-01 13:31] LABS: ALBUMIN 3.8 GM/DL (3.2-4.5); BILIRUBIN,TOTAL 0.6 MG/DL (0.1-1.0); CALCIUM 8.7 MG/DL (8.5-10.1); CREATININE SERUM 0.72 MG/DL (0.60-1.30); POTASSIUM 3.9 MMOL/L (3.6-5.0); TOTAL PROTEIN 6.1 GM/DL (6.4-8.2)
== END 2023-06-25 | disposition home or self-care (01) ==
LOC: ONC 12:53
PROVIDERS: ATTEND Internal Medicine Hematology & Oncology
DX: C50.412 Malignant neoplasm of upper-outer quadrant of left female breast (principal); K21.00 Gastro-esophageal reflux disease with esophagitis, without bleeding; K44.9 Diaphragmatic hernia without obstruction or gangrene; Z92.3 Personal history of irradiation
CPT/HCPCS: 80053; 85025; G0463; 36415; 99214